=== PATIENT | male | born 1995 | race Caucasian/White ===

== ENCOUNTER → 2023-08-11 09:50 | Outpatient (BNVA) | payer OTHER, SELFPAY | PROVIDERS: Family Provider Pediatrics Adolescent Medicine; PCP Occupational Therapist; Visit Provider Family Medicine Adult Medicine | DX: S42.032A Displaced fracture of lateral end of left clavicle, initial encounter for closed fracture (principal); V19.9XXA Pedal cyclist (driver) (passenger) injured in unspecified traffic accident, initial encounter | CPT/HCPCS: 73030 ==

== ENCOUNTER → 2023-08-15 08:44 | Outpatient (BNVA) | payer OTHER, SELFPAY | PROVIDERS: Family Provider Pediatrics Adolescent Medicine; PCP Occupational Therapist; Referring Provider Family Medicine Adult Medicine; Visit Provider Student in an Organized Health Care Education/Training Program | DX: S42.032A Displaced fracture of lateral end of left clavicle, initial encounter for closed fracture (principal); V18.2XXA Unspecified pedal cyclist injured in noncollision transport accident in nontraffic accident, initial encounter | CPT/HCPCS: 73000 ==

== ENCOUNTER 2023-08-15 11:57 | Outpatient (CLI) | payer OTHER, SELFPAY | END 2023-08-15 11:58 | disposition home or self-care (01) | LOC: SPT 11:58 | PROVIDERS: Family Provider Pediatrics Adolescent Medicine; PCP Occupational Therapist; Visit Provider Student in an Organized Health Care Education/Training Program | DX: Z46.89 Encounter for fitting and adjustment of other specified devices (principal); S42.032D Displaced fracture of lateral end of left clavicle, subsequent encounter for fracture with routine healing; X58.XXXD Exposure to other specified factors, subsequent encounter | CPT/HCPCS: A4565 ==

== ENCOUNTER → 2023-09-19 07:40 | Outpatient (BNVA) | payer OTHER, SELFPAY | PROVIDERS: Family Provider Pediatrics Adolescent Medicine; PCP Occupational Therapist; Visit Provider Student in an Organized Health Care Education/Training Program | DX: S42.032A Displaced fracture of lateral end of left clavicle, initial encounter for closed fracture (principal); X58.XXXA Exposure to other specified factors, initial encounter | CPT/HCPCS: 73000 ==